=== PATIENT | male | born 1955 | race Caucasian/White ===

== ENCOUNTER 2017-02-24 15:18 | Emergency (ER) | payer BC ==
[2017-02-24 16:26] LABS: APPEARANCE CLEAR (CLEAR); BILIRUBIN NEGATIVE (NEGATIVE); COLOR YELLOW (YELLOW); GLUCOSE NEGATIVE (NEGATIVE); KETONE NEGATIVE (NEGATIVE); NITRITE NEGATIVE (NEGATIVE); PROTEIN NEGATIVE (NEGATIVE); SPECIFIC GRAVITY 1.025 (1.005-1.020); UROBILINOGEN NORMAL (NORMAL)
[2017-02-24 16:29] LABS: BACTERIA FEW /hpf (NONE SEEN); MUCUS NONE SEEN /lpf (NONE SEEN); RED CELLS - URINE 25-50 /hpf (0-5)
[2017-02-24 18:41] LABS: BASOPHILS 0.4 % (0-2); EOSINOPHILS 0.4 % (0-7); HEMOGLOBIN 15.6 g/dL (13.5-17.5); IMMATURE GRANULOCYTES 0.2 % (0-5); LYMPHOCYTES 10.3 % (15-50); MCH 29.9 pg (26.0-34.0); MCHC 34.7 g/dL (31.0-37.0); MCV 86.2 fL (80.0-100.0); MEAN PLATELET VOLUME 10.5 fL (7.4-10.4); MONOCYTES 6.6 % (2-11); NEUTROPHILS 82.1 % (40-80); PLATELET COUNT 270 10x3/uL (130-400); RBC 5.22 10x6/uL (4.20-6.10); RDW 12.6 % (11.5-14.5); WBC 9.3 10x3/uL (4.8-10.8)
[2017-02-24 18:59] LABS: ANION GAP 16.4 mmol/L (8-16); BILIRUBIN - TOTAL 0.3 mg/dL (0.2-1.3); CARBON DIOXIDE 25.6 mmol/L (21.0-32.0); CREATININE - SERUM 1.3 mg/dL (0.6-1.3); PROTEIN - SERUM 7.5 g/dL (6.4-8.2)
== END 2017-02-24 19:29 | disposition home or self-care (01) ==
LOC: D.ER 15:18
PROVIDERS: Emergency Medicine
DX: M25.551 Pain in right hip (principal); K21.9 Gastro-esophageal reflux disease without esophagitis

== ENCOUNTER → 2017-03-01 11:24 | Outpatient (CLI) | payer BC ==
[~2017-03-01 11:24] MED LIST: AMBIEN10 MG PO; BAYER CHEWABLE81 MG PO; FLOMAX0.4 MG PO; MIRAPEX0.125 MG PO; MULTIPLE VITAMI1 TA1 PO; OMEPRAZOLE20 M1 PO; PROSCAR5 MG PO; SINGULAIR10 MG PO; ZOCOR40 MG PO
== END | disposition home or self-care (01) ==
LOC: D.RAD 11:24
DX: N20.0 Calculus of kidney (principal)

== ENCOUNTER 2017-03-07 10:11 | Day surgery (SDC) | payer BC ==
[2017-03-07] MEDS ORDERED: ZOCOR40 MG PO (11:27)
[2017-03-07] MEDS ORDERED: PROSCAR5 MG PO (11:27)
[2017-03-07] MEDS ORDERED: OMEPRAZOLE20 M1 PO (11:27)
[2017-03-07] MEDS ORDERED: MIRAPEX0.125 MG PO (11:29)
[2017-03-07] MEDS ORDERED: SINGULAIR10 MG PO (11:30)
[2017-03-07] MEDS ORDERED: AMBIEN10 MG PO (11:30)
[2017-03-07] MEDS ORDERED: FLOMAX0.4 MG PO (11:30)
[2017-03-07] MEDS ORDERED: BAYER CHEWABLE81 MG PO (11:31)
[2017-03-07] MEDS ORDERED: MULTIPLE VITAMI1 TA1 PO (11:31)
[2017-03-07 11:37] VITALS: BMI 27.5
--- NOTE | 2017-03-07 13:56 | OP ---
PATIENT NAME: NAHEED ESTRELLA MEDICAL RECORD: [id number] LOCATION:[facility] ADMISSION DATE: SURGEON: BETO BROOKS MD DATE OF OPERATION: 03/07/2017 SURGEON: Beto Brooks MD ANESTHESIA: MAC by Monse Avitia CRNA. PREOPERATIVE DIAGNOSIS: Left renal stone, 6 mm. FINDINGS: Radiodense left renal 6 mm triangular shaped stone. PROCEDURE: Left extracorporeal shockwave lithotripsy times 3000 shocks. BLOOD LOSS: None. COMPLICATIONS: None. CLINICAL HISTORY: This is a 61-year-old male with a history of kidney stones. He had an episode of renal colic and he was found on imaging to have a renal pelvis stone, 6 mm in size. After some discussion, we decided not to place a left ureteral stent. He comes today to have left ESWL performed. Since he does not have a stent in, no antibiotics were given to him. DESCRIPTION OF PROCEDURE: The patient was given IV sedation. He was placed in supine position on the treatment table. The stone was found and targeted in 2 planes. Then, 3000 shocks were given to the patient's stone and the stone was seen to break up. I will see the patient in followup in 2 weeks' time. He already has a prescription for [place] and tamsulosin, which he is taking. If the KUB shows that the stone has entirely broken up, then we can stop the medication for that point. If the stone is still present, then he may require second treatment. TRANSINT:[id number] Voice Confirmation ID: [id number] DOCUMENT ID: [id number] BETO BROOKS MD at 1356 CC: [id number] DICTATION DATE: 03/07/17 124 PHOTOGRAPHIC DEVELOPER AND PRINTER: 03/07/17 1247 REG [facility] [address] [place] [address]
== END 2017-03-07 13:30 | disposition home or self-care (01) ==
LOC: D.OPS 10:11
DX: N20.0 Calculus of kidney (principal); Z01.812 Encounter for preprocedural laboratory examination

== ENCOUNTER → 2017-03-21 09:53 | Outpatient (CLI) | payer BC ==
[2017-03-07 11:37] VITALS: BMI 27.5
== END | disposition home or self-care (01) ==
LOC: D.RAD 09:53
DX: N20.0 Calculus of kidney (principal)

== ENCOUNTER → 2017-03-22 16:45 | Outpatient (CLI) | payer BC ==
[2017-03-07 11:37] VITALS: BMI 27.5
[2017-04-03 10:16] LABS: CALCULI - CA OXALATE MONOHYDR 95 % (()); CALCULI - COLOR Brown (()); CALCULI - COMMENT Comment: (())
== END | disposition home or self-care (01) ==
LOC: D.LABREF 16:45
PROVIDERS: Urology
DX: N20.0 Calculus of kidney (principal)